=== PATIENT | female | born 1970 | race Caucasian/White ===

== ENCOUNTER 2018-11-08 12:40 | Day surgery (SDC) | payer OTHER ==
[2018-11-08] MEDS ORDERED: FENTAnyl 50 MCG/ML VIAL (15:35)
[2018-11-08] MEDS ORDERED: MIDAZOLAM 1 MG/ML 2 ML INJ ×2 (15:35)
== END 2018-11-08 15:39 | disposition home or self-care (01) ==
LOC: GIL 12:40
DX: K21.0 Gastro-esophageal reflux disease with esophagitis (principal)
CPT/HCPCS: 43239; 88305; 88312; 88313